=== PATIENT | male | born 1975 | race Caucasian/White ===

== ENCOUNTER 2023-07-16 08:26 | Emergency (ER) | payer SELFPAY ==
[~2023-07-16] VITALS: Ht 170.2 cm; Wt 73.0 kg
[2023-07-16 08:47] VITALS: O2SAT 99
[2023-07-16] MEDS: TETANUS, DIPHTHERIA, PERTUSSIS VAC/PF 0.5ML (>10YR OLD) IM ONE (09:24)
[2023-07-16] MEDS: CEFTRIAXONE SODIUM 1G VIAL IM ONE (09:25)
[2023-07-16] MEDS: LIDOCAINE HCL/EPINEPHRINE 1%-EPI 1:100,000 20 ML VIAL INFIL ONE (09:25)
[2023-07-16] MEDS ORDERED: CEPH500C2 MT (10:38)
[2023-07-16] MEDS ORDERED: IBUP-2029 MT (10:38)
[2023-07-16 10:49] VITALS: BP 123/72; PULSE 77; RESP 16; TEMP 97.9
== END 2023-07-16 12:20 | disposition home or self-care (01) ==
LOC: ER 10:20
DX: S56.822A Laceration of other muscles, fascia and tendons at forearm level, left arm, initial encounter (principal); X58.XXXA Exposure to other specified factors, initial encounter; Y93.89 Activity, other specified; Y92.89 Other specified places as the place of occurrence of the external cause; Y99.8 Other external cause status
CPT/HCPCS: 73090; 90715; 12002; 90471; 96372; 99284; J0696; J3490; Z7610 ×2